=== PATIENT | male | born 1985 | race Caucasian/White ===

== ENCOUNTER 2017-06-04 09:51 | Emergency (ER) | payer MEDICAID, SELFPAY ==
[2017-06-04] VITALS (15 sets, daily range): BP systolic 108–160; BP diastolic 70–101; PULSE 65–91; RESP 12–16; TEMP 36.8; O2SAT 96–100; BMI 25.2
--- NOTE | 2017-06-04 10:07 | CT_ITS ---
STUDY: CT BRAIN WITHOUT CONTRAST REASON FOR EXAM: Male, 31 years old. Confusion, delusions. RADIATION DOSAGE (If Supplied By Facility): CTDIvol = ( 44.99 ) mGy, DLP = ( 829.85 ) mGycm TECHNIQUE: Transaxial CT imaging of the brain was performed without administration of intravenous contrast material. Individualized dose optimization techniques were used for this CT. COMPARISON: None. FINDINGS: Normal soft tissue structures. Normal calvarium. Normal size ventricles and extra-axial spaces for the patient's age. Normal white matter tracts of the cerebral hemispheres. Normal basal ganglia and thalami. Normal brainstem. Normal cerebellum. There is no intracranial hemorrhage. There are no findings of an acute ischemic infarction. Minor mucoperiosteal thickening in the ethmoid air cells, more so on the left. CT/Brain/Head without Contrast IMPRESSION: Normal unenhanced CT scan of the brain. Electronically Signed: Emiliano Yao MD at 12:43 EST , Service support ,
--- NOTE | 2017-06-04 10:31 | ED.VISSUMM ---
- ER Visit Summary Date of Service: 06/04/17 Chief Complaint: Visual hallucinations and homicidal ideation History of Present Illness: The patient is a 31 M presenting with visual hallucinations and homicidal ideation. Patient states his symptoms have been ongoing for the past couple of months but worsening over the past several days. He [facility] [facility]. He sees spies all around him. He states he is homicidal towards these spies. Denies suicidal ideation. He states his is fed up. He states she wants a divorce. He missed an appointment with his psychiatrist this week because he states his watch battery was slow. He has a history of bipolar, PTSD, anxiety. He states he has never had hallucinations prior to the last couple of months. Physical Examination: Vitals are stable. Patient is afebrile. Alert no acute distress. HEENT exam is unremarkable. Neck is supple. Lungs are clear and equal bilaterally. Heart is regular rate and rhythm. Abdomen is soft nontender nondistended. Extremities are unremarkable. Skin is warm and dry. No focal neurologic deficit. Homicidal ideation Emergency Department Course and Treatment: Further history was obtained per family. 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 CBC, chemistries unremarkable. Liver enzymes are normal. Urinalysis unremarkable. Tox positive for benzos. Alcohol negative. CT head shows no acute process. Discussed with the counseling center for evaluation. Disposition: Per counseling center Impression: Visual hallucinations, homicidal and suicidal ideation. This note was generated with [employer] dictation software. It may contain incorrect words, spelling, and punctuation that were not noted in review of the chart prior to signing ED Disposition - Plan for ED Patient: Chief Complaint: Mental Health Referrals: Care Physician,No Primary [Primary Care Provider] -
[2017-06-04 10:51] LABS: Absolute Lymphocyte Count 2.89 X10^3/ul (0.83-4.51); Absolute Neutrophil Count 2.6 X10^3/uL (2.0-7.7); Basophil# 0.05 X10^3/uL; Basophil% 0.7 % (0-1); Eosinophil# 0.52 X10^3/uL; Eosinophils% 7.8 % (0-5); Hematocrit 41.8 % (40-54); Lymphocyte # 2.89 X10^3/ul (4.0); Lymphocyte % 43.1 % (19-41); Mean Corp Hgb Conc 33.5 g/gl (32-36); Mean Corpuscular Hgb 30.5 pg (27.0-32.0); Mean Corpuscular Volume 91.1 fL (80-94); Monocyte# 0.61 X10^3/uL; Monocyte% 9.1 % (0-10); Neutrophil # 2.62 X10^3/uL (2.7-7.7); Neutrophil % 39.2 % (47-70); Platelet Count 264 K/mm3 (150-450); RBC Distribution Width CV 14.1 % (11.6-14.6); RBC Distribution Width SD 46.4 fl (35.1-43.9); Red Blood Count 4.59 M/mm3 (4.6-6.2); White Blood Count 6.7 K/mm3 (4.4-11.0)
[2017-06-04 10:52] LABS: POSITIVE COUNT NO; POSITIVE DIFFERENTIAL NO; POSITIVE MORPHOLOGY NO
[2017-06-04 10:58] LABS: Bacteria 0 SEEN /hpf (None Seen); Mucous, Urine 0 SEEN /hpf (<or=2+); Red Blood Cells-Urine 0 SEEN /hpf (0-5); White Blood Cells 0 SEEN /hpf (0-5)
[2017-06-04 11:02] LABS: Color, Urine Straw (Yellow); Glucose, Dipstick Normal (Normal); Ketone-Dipstick Negative (Negative); Leukocyte Esterase-Dipstick Negative /ul (Negative); Nitrite-Dipstick Negative (Negative); Occult Blood-Urine Negative /ul (Negative); Protein-Dipstick Negative (Negative); Specific Gravity, Urine 1.005 (1.002-1.030); Urine Bilirubin Dipstick Negative (Negative); Urine Clarity Clear (Clear); Urine Urobilinogen Normal (Normal)
[2017-06-04 11:02] LABS: Anion Gap 6 (5-15); BUN 12 mg/dL (7-18); BUN/Creat Ratio 13.5 RATIO (10-20); Calcium,Total 8.4 mg/dL (8.5-10.1); Chloride 112 mmol/L (98-107); Creatinine, Serum 0.89 mg/dL (0.70-1.30); EST Glomerular Filtration Rate 106 mL/min (>60); Est Glom Filt Rate - Afr Amer 128 mL/min (>60); Glucose 83 mg/dL (74-106); Potassium 3.8 mmol/L (3.5-5.1); Sodium Level 141 mmol/L (136-145)
[2017-06-04 11:05] LABS: AST(SGOT) 14 U/L (15-37); Alanine Aminotransfer ALT/SGPT 26 U/L (16-61); Albumin, Serum 3.5 g/dL (3.2-5.0); Alkaline Phosphatase 86 U/L (45-117); Bilirubin, Direct 0.07 mg/dL (0.00-0.30); Globulin 3.1 g/dL (2.2-4.2); Protein, Total 6.6 g/dL (6.4-8.2)
[2017-06-04 11:08] LABS: Squamous Epithelial Cells - UA 0-5 SEEN /hpf (0-5)
[2017-06-04 11:16] LABS: Amphetamine Urine VISTA NEGATIVE (<1000 ng/mL); Barbiturate Urine VISTA NEGATIVE (< 200 ng/mL); Benzodiazepine Urine VISTA POSITIVE (< 200 ng/mL); Cocaine Urine VISTA NEGATIVE (< 300 ng/mL); Ecstacy Urine VISTA NEGATIVE (< 500 ng/mL); Methadone Urine VISTA NEGATIVE (< 300 ng/mL); PCP Urine VISTA NEGATIVE (< 25 ng/mL); THC Urine VISTA NEGATIVE (< 50 ng/mL); Vista UDS pH Range 7
[2017-06-04] MEDS: ALPRAZolam 0.5 MG Tablet 1 MG PO (11:33)
--- NOTE | 2017-06-04 13:10 | ED.RN ---
Mariela of crisis on way to ED.
[2017-06-04] MEDS: Naproxen 250 MG Tablet 500 MG PO (13:26)
--- NOTE | 2017-06-04 13:52 | NURSING ---
TRINI, CRISIS, HERE
[2017-06-04] MEDS: LORazepam 1 MG Tablet PO (14:02)
--- NOTE | 2017-06-04 17:08 | NURSING ---
WAITING ON BEL SANTILLAN TO CALL US BACK.
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
--- NOTE | 2017-06-04 17:46 | ED.RN ---
PATIENT BROUGHT BACK BY PATHOLOGICAL TECHNICIAN AND TOLD WHAT WOULD HAPPEN IF HE ATTEMPTED TO RUN AGAIN. PATIENT IS COOPERATIVE AT THIS TIME AND SAYS HE WILL STAY IN THE ROOM. FAMILY IS AT THE BEDSIDE.
[2017-06-04] MEDS: Ziprasidone IM 20 MG/ML VIAL 10 MG IM (19:01)
[2017-06-05 00:19] VITALS: RESP 12
[2017-06-05 01:03] VITALS: RESP 12
[2017-06-05] MEDS: LORazepam 1 MG Tablet PO (01:25)
[2017-06-05] MEDS: Acetaminophen 500 MG Tablet 1000 MG PO (01:25)
[2017-06-05 01:28] VITALS: BP 131/92; PULSE 69; RESP 13; O2SAT 97
[2017-06-05 02:22] VITALS: RESP 14
[2017-06-05] MEDS: Topiramate 50 MG Tablet 150 MG PO (06:49)
[2017-06-05 06:50] VITALS: BP 129/88; PULSE 81; RESP 16; O2SAT 99
--- NOTE | 2017-06-05 07:23 | NURSING ---
[facility]. ETA IS [phone]
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
[2017-06-05] MEDS: Ziprasidone IM 20 MG/ML VIAL 10 MG IM (08:05)
[2017-06-05 08:07] VITALS: BP 147/101; PULSE 83; RESP 18; O2SAT 100
== END 2017-06-05 10:25 ==
PROVIDERS: Emergency Provider Emergency Medicine
DX: F29 Unspecified psychosis not due to a substance or known physiological condition (principal); R45.850 Homicidal ideations; R45.851 Suicidal ideations; I10 Essential (primary) hypertension; F31.9 Bipolar disorder, unspecified; F43.10 Post-traumatic stress disorder, unspecified; X58.XXXA Exposure to other specified factors, initial encounter; Y93.9 Activity, unspecified; Y92.9 Unspecified place or not applicable; Y99.9 Unspecified external cause status; F41.9 Anxiety disorder, unspecified; Z72.0 Tobacco use; Z79.899 Other long term (current) drug therapy
CPT/HCPCS: 70450; 80048; 80076; 80307; 80320; 81001; 85025; 96372; 99284; G0480; J3486

== ENCOUNTER 2017-08-03 11:21 | Emergency (ER) | payer MEDICAID, SELFPAY ==
[2017-08-03 11:22] VITALS: BP 183/102; PULSE 95; RESP 16; TEMP 35.8; O2SAT 100; BMI 24.9
--- NOTE | 2017-08-03 11:54 | ED.VISSUMM ---
- ER Visit Summary Date of Service: 08/03/17 Chief Complaint: [Dental pain] History of Present Illness: The patient is a 32 M presents the emergency department with complaint of dental pain that started 2 days ago. Patient was seen at [facility] yesterday and started on amoxicillin. Patient states this morning he woke up and he noticed swelling to his gingiva. Patient denies any fever. Patient called and made a dental appointment and is scheduled to be seen but not for another 2 weeks. And states that he had a filling that fell out of his left upper incisor about a month ago. HEENT-PERRLA, EOMI. Cranial nerves II through XII grossly intact. TMs clear. Mucous membranes moist. No adenopathy. Titian-patient has a broken and carried left upper incisor. Patient has gingival swelling above this however no fluctuance noted. Cardiovascular-regular rate and rhythm without murmur or ectopy Lungs-clear to auscultation, chest wall stable without crepitus or subcu emphysema Abdomen-normoactive bowel sounds, soft, nontender, no rebound or rigidity, no peritoneal signs. Extremities-intact ?4, normal range of motion, normal pulses, atraumatic[] ] Test Results: [None indicated] Emergency Department Course and Treatment: [Patient started on clindamycin and [place]]. I feel patient has early dental abscess I do not feel this is amenable to I&D at this time. Treatment Plan: [Will be switched to clindamycin and given [place] for pain.] Disposition: [Discharged home in stable condition] Impression: [Dental pain with early dental abscess] This note was generated with [employer] dictation software. It may contain incorrect words, spelling, and punctuation that were not noted in review of the chart prior to signing ED Disposition - Plan for ED Patient: Chief Complaint: Dental Referrals: Care Physician,No Primary [Primary Care Provider] -
--- NOTE | 2017-08-03 11:57 | ED.DCSUM_ITS ---
- ER Visit Summary Date of Service: 08/03/17 Chief Complaint: [Dental pain] History of Present Illness: The patient is a 32 M presents the emergency department with complaint of dental pain that started 2 days ago. Patient was seen at [facility] yesterday and started on amoxicillin. Patient states this morning he woke up and he noticed swelling to his gingiva. Patient denies any fever. Patient called and made a dental appointment and is scheduled to be seen but not for another 2 weeks. And states that he had a filling that fell out of his left upper incisor about a month ago. HEENT-PERRLA, EOMI. Cranial nerves II through XII grossly intact. TMs clear. Mucous membranes moist. No adenopathy. Titian-patient has a broken and carried left upper incisor. Patient has gingival swelling above this however no fluctuance noted. Cardiovascular-regular rate and rhythm without murmur or ectopy Lungs-clear to auscultation, chest wall stable without crepitus or subcu emphysema Abdomen-normoactive bowel sounds, soft, nontender, no rebound or rigidity, no peritoneal signs. Extremities-intact ?4, normal range of motion, normal pulses, atraumatic[] ] Test Results: [None indicated] Emergency Department Course and Treatment: [Patient started on clindamycin and Barco]. I feel patient has early dental abscess I do not feel this is amenable to I&D at this time. Treatment Plan: [Will be switched to clindamycin and given Barco for pain.] Disposition: [Discharged home in stable condition] Impression: [Dental pain with early dental abscess] This note was generated with [employer] dictation software. It may contain incorrect words, spelling, and punctuation that were not noted in review of the chart prior to signing ED Disposition - Plan for ED Patient: Chief Complaint: Dental Referrals: Care Physician,No Primary [Primary Care Provider] -
--- NOTE | 2017-08-03 11:59 | DCINST.ED_ITS ---
ED Disposition - Plan for ED Patient: Chief Complaint: Dental Instructions: ED Tooth Pain, Dental Abscess Prescriptions: Hydrocodone Bitart/Apap 5-325 [[place] 5/325] 1 - 2 tab PO Q4H PRN PRN 5 Days #20 tab PRN Reason: Pain Clindamycin HCl [Cleocin] 300 mg PO Q6H #40 cap Referrals: Care Physician,No Primary [Primary Care Provider] - Additional Instructions: see a dentist
[2017-08-03] MEDS: Clindamycin HCl 150 MG Capsule 300 MG PO (12:23)
[2017-08-03] MEDS: HYDROcodone Bitartrate/Apap 5/325 Tablet PO (12:24)
== END 2017-08-03 12:28 | disposition home or self-care (01) ==
LOC: ED 12:17
PROVIDERS: Emergency Provider Emergency Medicine
DX: K04.7 Periapical abscess without sinus (principal); K02.9 Dental caries, unspecified; K08.89 Other specified disorders of teeth and supporting structures; S02.5XXA Fracture of tooth (traumatic), initial encounter for closed fracture; X58.XXXA Exposure to other specified factors, initial encounter; Y93.9 Activity, unspecified; Y92.9 Unspecified place or not applicable; Y99.9 Unspecified external cause status; Z72.0 Tobacco use; Z79.899 Other long term (current) drug therapy
CPT/HCPCS: 99283

== ENCOUNTER 2017-08-05 20:57 | Emergency (ER) | payer MEDICAID, SELFPAY ==
[2017-08-05 20:57] VITALS: BP 150/97; PULSE 86; RESP 17; TEMP 37.1; O2SAT 99; BMI 26.4
--- NOTE | 2017-08-05 21:19 | ED.DCSUM_ITS ---
- ER Visit Summary Date of Service: 08/05/17 Chief Complaint: Dental pain History of Present Illness: The patient is a 32 M who is here a few days ago for a toothache. He was started on clindamycin and [place] but he ran out of [place] and is here requesting a refill of his [place]. His tooth is actually improving somewhat since that time. He denies fever or trouble swallowing. Physical Examination: Not in distress. No facial swelling. No palpable abscess. He does have focal decay and tenderness on percussion of the left maxillary central incisor. No focal abscess. No trismus. Voice is normal. Submandibular tissues and anterior neck structures are soft Test Results: None performed Emergency Department Course and Treatment: We will prescribe him naproxen and viscous lidocaine. He will follow-up with a dentist next week. He already has an appointment Treatment Plan: Pain medication and close follow-up Disposition: Home in stable condition Impression: Subsequent encounter for dental pain This note was generated with [employer] dictation software. It may contain incorrect words, spelling, and punctuation that were not noted in review of the chart prior to signing ED Disposition - Plan for ED Patient: Chief Complaint: Dental Instructions: ED Tooth Pain Prescriptions: Naproxen [Naprosyn] 500 mg PO BID PRN #20 tablet Lidocaine 2% Viscous [Xylocaine Viscous] 5 ml PO TID PRN #3 udc PRN Reason: Pain Referrals: Care Physician,No Primary [Primary Care Provider] -
== END 2017-08-05 21:49 | disposition home or self-care (01) ==
LOC: ED 21:15
PROVIDERS: Emergency Provider Emergency Medicine
DX: K08.89 Other specified disorders of teeth and supporting structures (principal); K02.9 Dental caries, unspecified; Z72.0 Tobacco use; Z79.899 Other long term (current) drug therapy
CPT/HCPCS: 99282

== ENCOUNTER 2018-06-11 05:24 | Emergency (ER) | payer MEDICAID, SELFPAY ==
[2018-06-11 05:25] VITALS: BP 178/109; PULSE 85; RESP 16; TEMP 36.5; O2SAT 100; BMI 26.0
[2018-06-11 05:28] VITALS: RESP 16
--- NOTE | 2018-06-11 05:33 | ED.VISSUMM ---
- ER Visit Summary Date of Service: 06/11/18 Chief Complaint: [Dental injury History of Present Illness: The patient is a 32 M presents to the emergency department dental injury. Patient states that he was roughhousing and broke 1 of his teeth with a cavity in it. He did not strike his head. He denies other injury. This happened last night. Overnight, his pain is gotten worse. He denies any fevers or chills. He denies any trouble speaking or swallowing. He is not seen a dentist in some time. Physical Examination: Oropharynx is widely patent. Patient does have partial avulsion along the cavity of tooth #28. Submental space is soft. No focal abscess. No trismus or stridor. Neck is supple. Test Results: [] Emergency Department Course and Treatment: The patient had It placed over the partial avulsion to cover the exposed root. He is given dose of analgesics here. He will be kept on antibiotics and anti-inflammatories. He is given outpatient dental resources. He will be discharged home. Treatment Plan: [] Disposition: Discharge Impression: Dental pain This note was generated with [employer] dictation software. It may contain incorrect words, spelling, and punctuation that were not noted in review of the chart prior to signing ED Disposition - Plan for ED Patient: Instructions: Dental Trauma Prescriptions: Naproxen [Naprosyn] 500 mg PO BID PRN #20 tab Penicillin V Potassium 500 mg PO 4X/DAY #40 tab Referrals: Care Physician,No Primary [Primary Care Provider] -
[2018-06-11] MEDS: Penicillin Vk 250 MG Tablet 500 MG PO (05:46)
[2018-06-11] MEDS: HYDROcodone Bitartrate/Apap 5/325 Tablet PO (05:46)
[2018-06-11 05:51] VITALS: BP 177/99; PULSE 84; RESP 16; O2SAT 100
== END 2018-06-11 05:52 | disposition home or self-care (01) ==
LOC: ED 05:38
PROVIDERS: Emergency Provider Emergency Medicine
DX: K08.89 Other specified disorders of teeth and supporting structures (principal); S03.2XXA Dislocation of tooth, initial encounter; X58.XXXA Exposure to other specified factors, initial encounter; Y93.83 Activity, rough housing and horseplay; Y92.9 Unspecified place or not applicable; Y99.9 Unspecified external cause status; Z72.0 Tobacco use; Z79.899 Other long term (current) drug therapy
CPT/HCPCS: 99283

== ENCOUNTER 2023-02-12 22:28 | Emergency (ER) | payer MEDICARE, MEDICAID, SELFPAY ==
[2023-02-12 22:31] VITALS: BP 153/96; PULSE 106; RESP 20; TEMP 36.6; O2SAT 95
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
--- NOTE | 2023-02-12 22:49 | ED.RN ---
Pt refusing tetanus shot at this time. States it's only been 2 years since last given.
[2023-02-12 23:07] LABS: Absolute Lymphocyte Count 2.74 X10^3/uL (0.83-4.51); Absolute Neutrophil Count 9.8 X10^3/uL (2.0-7.7); Basophil# 0.09 X10^3/uL; Basophil% 0.6 % (0-1); Eosinophil# 0.25 X10^3/uL; Eosinophils% 1.8 % (0-5); Hematocrit 46.7 % (40-54); Hemoglobin 14.9 g/dL (13.0-16.5); Lymphocyte # 2.74 X10^3/ul (0.83-4.51); Lymphocyte % 19.2 % (19-41); Mean Corp Hgb Conc 31.9 g/dL (32-36); Mean Corpuscular Hgb 30.8 pg (27.0-32.0); Mean Corpuscular Volume 96.5 fL (80-94); Mean Platelet Vol. 10.2 fl (6.2-12.0); Monocyte# 1.18 X10^3/uL; Monocyte% 8.3 % (0-10); NRBC Flagged by Analyzer 0 % (0-5); Neutrophil # 9.78 X10^3/uL (2.7-7.7); Neutrophil % 68.5 % (47-70); Platelet Count 304 K/mm3 (150-450); RBC Distribution Width CV 14.6 % (11.6-14.6); RBC Distribution Width SD 52.6 fl (35.1-43.9); Red Blood Count 4.84 M/mm3 (4.6-6.2); White Blood Count 14.3 K/mm3 (4.4-11.0)
[2023-02-12 23:46] LABS: ALB/GLOB Ratio 0.9 RATIO (0.9-2.4); AST(SGOT) 68 U/L (15-37); Alanine Aminotransfer ALT/SGPT 64 U/L (16-61); Albumin, Serum 3.6 g/dL (3.2-5.0); Alkaline Phosphatase 83 U/L (45-117); Anion Gap 8 (5-15); BUN 23 mg/dL (7-18); BUN/Creat Ratio 16.2 RATIO (10-20); Calcium,Total 8.3 mg/dL (8.5-10.1); Chloride 108 mmol/L (98-107); Creatinine, Serum 1.42 mg/dL (0.70-1.30); EST Glomerular Filtration Rate 60 mL/min (>60); Est Glom Filt Rate - Afr Amer 72 mL/min (>60); Globulin 3.8 g/dL (2.2-4.2); Glucose 101 mg/dL (74-106); Potassium 5.3 mmol/L (3.5-5.1); Protein, Total 7.4 g/dL (6.4-8.2); Sodium Level 140 mmol/L (136-145)
== END 2023-02-13 00:25 ==
PROVIDERS: Emergency Provider Emergency Medicine; PCP Family Medicine; Visit Provider Emergency Medicine
DX: S06.0X1A Concussion with loss of consciousness of 30 minutes or less, initial encounter (principal); F10.229 Alcohol dependence with intoxication, unspecified; Y04.8XXA Assault by other bodily force, initial encounter; I10 Essential (primary) hypertension; S16.1XXA Strain of muscle, fascia and tendon at neck level, initial encounter; S60.419A Abrasion of unspecified finger, initial encounter; S60.511A Abrasion of right hand, initial encounter; S60.512A Abrasion of left hand, initial encounter; S00.81XA Abrasion of other part of head, initial encounter; Z23 Encounter for immunization; Z87.891 Personal history of nicotine dependence; Z79.899 Other long term (current) drug therapy
CPT/HCPCS: 36415; 70450; 72125; 80053; 82077; 85025; 90471; 90715; 99282; A4216

== ENCOUNTER → 2023-07-30 | Outpatient (CLI) | payer MEDICARE, MEDICAID, SELFPAY ==
[2023-07-30 13:03] LABS: Absolute Neutrophil Count 2.8 X10^3/uL (2.0-7.7); Basophil# 0.04 X10^3/uL; Basophil% 0.7 % (0-1); Eosinophil# 0.42 X10^3/uL; Eosinophils% 7.5 % (0-5); Hematocrit 41.4 % (40-54); Hemoglobin 13.6 g/dL (13.0-16.5); Mean Corp Hgb Conc 32.9 g/dL (32-36); Mean Corpuscular Volume 94.3 fL (80-94); Mean Platelet Vol. 9.4 fl (6.2-12.0); Monocyte# 0.53 X10^3/uL; Monocyte% 9.4 % (0-10); NRBC Flagged by Analyzer 0 % (0-5); Neutrophil # 2.83 X10^3/uL (2.7-7.7); Neutrophil % 50.2 % (47-70); Platelet Count 227 K/mm3 (150-450); RBC Distribution Width SD 48.7 fl (35.1-43.9); Red Blood Count 4.39 M/mm3 (4.6-6.2); White Blood Count 5.6 K/mm3 (4.4-11.0)
[2023-07-30 13:27] LABS: ALB/GLOB Ratio 1.1 RATIO (0.9-2.4); AST(SGOT) 25 U/L (15-37); Alanine Aminotransfer ALT/SGPT 34 U/L (16-61); Albumin, Serum 3.4 g/dL (3.2-5.0); Alkaline Phosphatase 89 U/L (45-117); Anion Gap 3 (5-15); BUN 14 mg/dL (7-18); BUN/Creat Ratio 16.7 RATIO (10-20); Bilirubin, Direct 0.16 mg/dL (0.00-0.30); Calcium,Total 8.3 mg/dL (8.5-10.1); Chloride 104 mmol/L (98-107); Creatinine, Serum 0.84 mg/dL (0.70-1.30); EST Glomerular Filtration Rate 109 mL/min (>60); Est Glom Filt Rate - Afr Amer 132 mL/min (>60); Globulin 3.1 g/dL (2.2-4.2); Glucose 143 mg/dL (74-106); Potassium 3.6 mmol/L (3.5-5.1); Protein, Total 6.5 g/dL (6.4-8.2); Sodium Level 138 mmol/L (136-145)
[2023-07-31 12:07] LABS: Hepatitis A AB, Total Negative (Negative); Hepatitis B Core Ab Total Negative (Negative)
[2023-08-01 08:43] LABS: Hepatitis B Surface Antibody Non-Reactive; Hepatitis B Surface Antigen Non-Reactive (Nonreactive); Hepatitis C Antibody Non-Reactive (Nonreactive); Syphilis Antibodies Non-reactive
[2023-08-01 14:49] LABS: T3 Uptake 34 % (33-40); Thyroid Stim Hormone (TSH) 0.86 uIU/mL (0.358-3.74)
== END | disposition home or self-care (01) ==
PROVIDERS: PCP Family Medicine
DX: Z13.29 Encounter for screening for other suspected endocrine disorder (principal); F11.20 Opioid dependence, uncomplicated; Z11.3 Encounter for screening for infections with a predominantly sexual mode of transmission; Z11.59 Encounter for screening for other viral diseases; Z13.228 Encounter for screening for other metabolic disorders; Z13.818 Encounter for screening for other digestive system disorders; E07.9 Disorder of thyroid, unspecified
CPT/HCPCS: 36415; 80053; 82248; 84439; 84443; 84479; 85025; 86704; 86706; 86708; 86780; 86803; 87340; 87491; 87591; 87661

== ENCOUNTER 2023-08-27 10:59 | Outpatient (RCR) | payer MEDICARE, MEDICAID, SELFPAY | END 2023-09-06 18:00 | disposition home or self-care (01) | LOC: LAB 10:59 | PROVIDERS: PCP Family Medicine | DX: F11.20 Opioid dependence, uncomplicated (principal) ==